=== PATIENT | female | born 1970 | race Caucasian/White ===

== ENCOUNTER 2022-04-01 09:02 | Outpatient (REF) | payer BC, SELFPAY ==
[2022-04-01 10:30] LABS: C Reactive Protein 0.54 mg/dL (< or = 0.50); Rheumatoid Factor < 15.0 IU/mL (<15.0)
[2022-04-01 10:50] LABS: Erythrocyte Sedimentation Rate 4 MM/HR (0-20)
[2022-04-03 10:02] LABS: Lyme Abs Screen <0.90 index
[2022-04-03 11:46] LABS: Anti Nuclear Antibody Screen NEGATIVE (NEGATIVE)
== END 2022-04-01 09:03 | disposition home or self-care (01) ==
LOC: HO.LAB 09:02
PROVIDERS: Visit Provider Psychiatry & Neurology Neurology
DX: M79.10 Myalgia, unspecified site (principal)
CPT/HCPCS: 36415; 82550; 85652; 86038; 86039; 86140; 86431; 86617; 86618